=== PATIENT | female | born 1990 | race African-American/Black ===

== ENCOUNTER 2019-10-27 10:18 | Emergency (ER) | payer OTHER, SELFPAY ==
[2019-10-27] VITALS (18 sets, daily range): BP systolic 136–189; BP diastolic 74–98; PULSE 86–97; RESP 14–24; TEMP 36.7; O2SAT 98–100
--- NOTE | 2019-10-27 10:38 | ECG_ITS ---
Measurements Intervals [place] Rate: 91 P: 24 MD: 187 QRS: 3 QRSD: 118 T: 5 QT: 339 QTc: 419 Interpretive Statements SINUS RHYTHM INTRAVENTRICULAR CONDUCTION DELAY BORDERLINE T WAVE ABNORMALITY- INFERIOR LEADS BORDERLINE ECG Electronically Signed On 10-27-2019 11:44:18 CDT by Andre Gonzalez D.O.
--- NOTE | 2019-10-27 10:38 | PC.NURSE ---
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 This RN advised patient that an EKG must be obtained within 10 minutes of checking in. Pt was asked by this RN to change into gown so staff can obtain vitals and EKG. This RN stepped out to input patient information into EKG machine, IVONNE Marte stepped in and instructed patient to sit on stretcher so we could get an EKG. Patient asked if there was another nurse to take care of her. She states That nurse was not sensable, you don't tell a patient you have 10 minutes to get stuff done on them . This RN and Rosanna stepped back into room and attempted to educate patient again on the need of rapid EKG and vitals on patients with cardiac complaints. 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 You don't tell patients you have 10 minutes to do things. That is just rude and not sensable. This RN apologized to patient that she felt that way and informed charge nurse of the patients request for a new nurse.
--- NOTE | 2019-10-27 10:40 | ED.UPPEXIN ---
HPI - Extremity Injury (Upper) General Chief Complaint: Extremity Injury, Upper Stated Complaint: bradycardia/arm pain/numbness Time Seen by Provider: 10/27/19 10:33 Source: patient and RN notes reviewed Mode of arrival: ambulatory Limitations: no limitations History of Present Illness HPI narrative: Pt is a 29 y/o female presenting to the ED c/o LUE numbness. Pt reports she started experiencing LUE numbness, pain, and swelling a few days ago. Pt notes her pain is sharp and intermittent, and states her pain is worsened with cold weather. Pt states she sees a visible bloot clot in her lt hand and notes I think I am Bradycardic . Pt states she has felt palpitations described as a slot heartbeat, but notes she has not checked her pulse. Pt also reports BLE soreness and subjective fever, but denies cough, CP, SOB, ABD pain, N/V, or diarrhea. 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 Onset (ago): day(s) ( few days ago) Other Extremity Injury: Left: arm Associated symptoms: other (LUE pain; LUE swelling'; Subjective fever; palpitations; BLE soreness) Related Data Allergies Allergy/AdvReac Type Severity Reaction Status Date / Time Seasonal Allergies Allergy Intermediate Uncoded 10/14/13 16:23 Review of Systems Review of Systems: All systems reviewed & are unremarkable except as noted in HPI and below Constitutional: Constitutional: Reports fever(s) (Subjective) Cardiovascular: Cardiovascular: Denies chest pain and Reports palpitations Respiratory: Respiratory: Denies cough and Denies dyspnea Gastrointestinal: Gastrointestinal: Denies abdominal pain, Denies diarrhea, Denies nausea and Denies vomiting Musculoskeletal: Musculoskeletal: Reports other (LUE pain; LUE swelling; BLE soreness) Neurologic: Reports numbness (LUE) [facility] Past Medical History Medical History Ankle fracture Asthma Surgical History Surgical History No significant past surgical history Social History Social History Smoking status: Unknown if ever smoked Gender identity (if verbalized by the patient): Female Exam Const: General: no acute distress and well developed Nutritional Appearance: obese Orientation/consciousness: oriented to person, oriented to place, oriented to time and patient oriented x3 HENMT: Head: normocephalic Ears: external ears normal General nose exam: Normal external nose present Eyes: General: appearance normal, both eyes and all related structures Conjunctivae: conjunctivae normal Neck: Neck: normal visual inspection and full ROM Chest: Chest palpation & inspection: normal inspection of the chest and no tenderness Resp: Effort & Inspection: normal respiratory effort Auscultation: clear to auscultation bilaterally Cardio: Rate: regular rate Rhythm: regular rhythm GI: GI Palp: No abdominal tenderness and Yes Soft to palpation Skin: General skin exam: normal color, turgor normal and other (small hard and raised area on surface of lt hand, consistent with callus) Neuro: General: oriented to person, oriented to place, oriented to time and patient oriented x3 Cognition (Neuro): normal cognition Extrem: General: normal to inspection, full ROM and no pedal edema Psych: Appearance: grossly normal Mental Status: mental status grossly normal Affect: normal affect Course Vital Signs Vital signs: Vital Signs Pulse Rate 90 10/27/19 10:40 Respiratory Rate 20 10/27/19 10:40 Pulse Oximetry 98 10/27/19 10:40 Temperature 36.7 C 10/27/19 10:42 Pulse Rate 93 10/27/19 13:45 Respiratory Rate 20 10/27/19 13:45 Blood Pressure 143/74 H 10/27/19 12:05 Pulse Oximetry 100 10/27/19 13:45 MDM - Extremity Injury (Upper) Lab Data Result diagrams: 10/27/19 11:58 10/27/19 11:58 Labs: Lab Results
--- NOTE | 2019-10-27 10:58 | PC.NURSE ---
Pt is A&Ox4. Pt states she has no chest pain but has numbness and tingling to L arm, generalized weakness to BLE, and her heart felt slow. Pt states she could feel her heart beating through her chest. Pt has high blood pressure at this time but denies HTN. Pt resting in bed. Pt states she has difficult veins. Pt IV attempted with no success. Pt LCTA. Pt states she thinks she is going to and has blood clot somewhere. Pt has no edema noted at this time. Pt denies pain at this time. Pt has call light in reach
[2019-10-27 12:00] LABS: Add Urine Microscopic? YES; Appearance Urine Clear (Clear); Bilirubin Urine Negative (Negative); Blood Urine 3+ (Negative); Color Urine Straw (Yellow); Glucose Urine UA 3+ mg/dL (Negative); Ketones Urine Trace mg/dL (Negative); Leukocyte Esterase Ur Negative LEU/UL (Negative); Nitrate Urine Negative (Negative); Protein Urine Negative (Negative); RBC Urine >75 /hpf (0-2); Squamous Epithelial Cell Urine Occasional /hpf (Few); Urobilinogen Urine Negative mg/dL (<2.0); WBC Urine 0-3 /hpf
[2019-10-27 12:04] LABS: Specific Grav Ur 1.031 (1.001-1.035)
[2019-10-27 12:10] LABS: Basophils Percent Auto 0.5 % (0.2-1.2); Eosinophils Absolute Auto 0.1 K/mm3 (0-0.3); Eosinophils Percent Auto 0.9 % (0-4.4); Hematocrit 41.7 % (37.0-47.0); Hemoglobin 13.4 g/dL (12.0-15.0); Immature Granulocyte Absolute 0.01 K/mm3 (0.00-0.031); Immature Granulocyte Percent A 0.2 % (0-0.5); Lymphocytes Absolute Auto 1.84 K/mm3 (0.9-3.2); Lymphocytes Percent Auto 33.5 % (18.3-44.2); Mean Corpuscular HGB Conc 32.1 g/dl (32-36); Mean Corpuscular Hemoglobin 26.5 pg (26-34); Mean Corpuscular Volume 82.6 fl (80-100); Monocytes Absolute Auto 0.4 K/mm3 (0.1-0.6); Monocytes Percent Auto 6.5 % (2.6-8.5); Neutrophils Absolute Auto 3.2 K/mm3 (1.3-6.7); Neutrophils Percent Auto 58.4 % (45.5-73.1); Platelet Count Result 311 k/mm3 (150-375); Red Blood Count 5.05 M/mm3 (4.2-5.4); Red Cell Distribution Width 14.7 % (11.5-14.5); White Blood Count 5.5 K/mm3 (4.5-10.0)
[2019-10-27 12:22] LABS: Alanine Aminotransferase 54 U/L (4-35); Alkaline Phosphatase 90 U/L (38-126); Aspartate Amino Transferase 44 U/L (14-36); Bilirubin,Total 0.4 mg/dL (0.2-1.3); Blood Urea Nitrogen 12 mg/dL (7-17); Calcium 9.2 mg/dL (8.4-10.2); Carbon Dioxide 27 mmol/L (22-30); Chloride 99 mmol/L (98-107); D Dimer 0.28 ug/mL (<0.48); Estimated CRCL calculation 139 ml/min; Estimated Glomerular Filt Rate > 60; Glucose 485 mg/dL (65-105); Sodium 133 mmol/L (137-145)
[2019-10-27 12:34] LABS: Troponin I < 0.012 ng/mL (0.000-0.034)
[2019-10-27] MEDS: SODIUM CHLORIDE 0.9% IV 1,000 ML 999 ML IV CONT (14:10)
--- NOTE | 2019-10-27 14:13 | PC.NURSE ---
Pt refused to have insulin that EDP ordered and states she only does holistic care. Pt informed that fluids alone will not help lower her BS. Pt verbalized understanding EDP aware.
[2019-10-27 15:07] LABS: Hemoglobin A1C 12.3 % (<5.7)
[2019-10-27 16:04] LABS: Troponin I < 0.012 ng/mL (0.000-0.034)
== END 2019-10-27 16:20 | disposition home or self-care (01) ==
PROVIDERS: Emergency Provider Emergency Medicine
DX: E11.65 Type 2 diabetes mellitus with hyperglycemia (principal); I10 Essential (primary) hypertension; J45.909 Unspecified asthma, uncomplicated; I45.9 Conduction disorder, unspecified; R94.31 Abnormal electrocardiogram [ECG] [EKG]; Z79.84 Long term (current) use of oral hypoglycemic drugs
CPT/HCPCS: 36415; 80053; 81001; 81025; 83036; 84484; 85025; 85380; 93005; 96360; 99284; J7030

== ENCOUNTER 2023-07-23 16:27 | Emergency (ER) | payer OTHER, SELFPAY ==
--- NOTE | ~2023-07-23 | XR_ITS ---
EXAMINATION: XR foot LT min 3V DATE: 07/23/2023 19:46 INDICATION: Left foot foreign body. TECHNIQUE: 4 views of left foot were obtained. COMPARISON: None. FINDINGS: There is moderate hallux valgus. No fracture. There is mild osteoarthritis of first metatar sophalangeal joint. There is mild osteoarthritis of talonavicular joint. There is an enthesophyte at posterior aspect of calcaneal tuberosity. IMPRESSION: 1. No radiopaque foreign body. 2. Moderate hallux valgus. 3. Mild polyarticular osteoarthritis. Reviewed, dictated and finalized at location E. [employer]
[2023-07-23 16:31] VITALS: BP 150/92; PULSE 118; RESP 20; TEMP 36.6; O2SAT 98
--- NOTE | 2023-07-23 19:56 | ED.LOWEXIN ---
HPI - Extremity Injury (Lower) General Chief Complaint: Extremity Injury, Lower Stated Complaint: shard of glass in foot L foot Time Seen by Provider: 07/23/23 19:36 Source: patient Mode of arrival: ambulatory Limitations: no limitations History of Present Illness HPI Narrative: This is a 33 year old female that presents to the ER for left heel pain. Ongoing today. Reports she feels a very sharp pain on the bottom of her foot like there is a shard of glass stuck in it. Reports worse with ambulation. No known injuries. Denies decreased ROM or numbness. Related Data Allergies Allergy/AdvReac Type Severity Reaction Status Date / Time Seasonal Allergies Allergy Intermediate Unknown Uncoded 07/23/23 16:28 Review of Systems Review of Systems: CONSTITUTIONAL: Denies fever MUSCULOSKELETAL: Reports joint pain, and myalgia. NEUROLOGIC: Denies numbness All systems reviewed & are unremarkable except as noted in HPI and below PMFSH Past Medical History Medical History (Updated 07/23/23 @ 19:57 by Judith Rosales PA-C) Ankle fracture Asthma Surgical History Surgical History No significant past surgical history Social History Social History Smoking status: Unknown if ever smoked Gender identity (if verbalized by the patient): Female Exam Narrative: GENERAL: Well-appearing, well-nourished, and in no acute distress. HEAD: Normocephalic, atraumatic. EYES: EOMI. EXTREMITIES: Normal range of motion. No edema or erythema. Normal DP pulse. Normal sensation. Tender to palpation at the plantar fascia insertion SKIN: Warm, dry, no rash. NEURO: No focal deficits. Alert and oriented x3. PSYCH: Normal mood and affect Course Course Emergency Course: Patient updated on workup and agrees with plan of care Vital Signs Vital signs: Vital Signs Temperature 97.9 F 07/23/23 16:31 Pulse Rate 118 H 07/23/23 16:31 Respiratory Rate 20 07/23/23 16:31 Blood Pressure 150/92 H 07/23/23 16:31 Pulse Oximetry 98 07/23/23 16:31 Oxygen Delivery Room Air 07/23/23 16:31 Temperature 97.9 F 07/23/23 16:31 Pulse Rate 118 H 07/23/23 16:31 Respiratory Rate 20 07/23/23 16:31 Blood Pressure 150/92 H 07/23/23 16:31 Pulse Oximetry 98 07/23/23 16:31 Oxygen Delivery Room Air 07/23/23 16:31 MDM - Extremity Injury (Lower) MDM Narrative Medical decision making narrative: Patient presents to the ER for left heel pain. No known injuries. She is neurovascularly intact. Foot x-ray is without radiopaque foreign body. Moderate hallux valgus. Mild polyarticular osteoarthritis. Tender to palpation at the plantar fascia. She was instructed on further care plantar fasciitis. She is to follow up with primary provider. She was given warnings to return to the ER Will be given information for podiatry if needed Differential Diagnosis Differential diagnosis: Likely other (foot fracture, plantar fasciitis, foreign body) Imaging Data Radiologist's impression: ITS Impressions Foot X-Ray 07/23/23 19:52 IMPRESSION: 1. No radiopaque foreign body. 2. Moderate hallux valgus. 3. Mild polyarticular osteoarthritis. Critical Care Time Critical Care Time Critical Care Time: No Discharge Plan Discharge Clinical Impression: Pain of left heel Patient Disposition: Home, Self-Care Condition: Stable Instructions: Plantar Fasciitis (ED) Additional Instructions: Return to the ER if you experience fever, redness and swelling of your extremity, numbness or any other symptoms that are concerning to you Wear shoe inserts for support. Ice and elevate extremity. Tylenol or Ibuprofen as needed for pain Follow up with primary care doctor for further care. Dr. Green is our future [employer] advisor if needed Prescriptions: No Action metformin [Glucophage] 500 mg tablet 500 mg PO BID Qty: 60 0RF Follow-up
[2023-07-23 21:01] VITALS: BP 148/89; PULSE 102; RESP 20; O2SAT 98
== END 2023-07-23 21:03 | disposition home or self-care (01) ==
LOC: ANHED 20:21
PROVIDERS: Emergency Provider Physician Assistant
DX: M79.672 Pain in left foot (principal); J45.909 Unspecified asthma, uncomplicated; M20.12 Hallux valgus (acquired), left foot; M19.072 Primary osteoarthritis, left ankle and foot; Z79.84 Long term (current) use of oral hypoglycemic drugs
CPT/HCPCS: 73630; 99283